=== PATIENT | male | born 1945 | race Caucasian/White ===

== ENCOUNTER 2017-10-10 12:33 | Observation (INO) ==
[2017-10-10] MEDS ORDERED: Sod Chloride 0.9% Inj 1,000 ML IV.SIG ONE (13:01)
[2017-10-10 13:21] LABS: Baso % (Auto) 0.2 % (0.0-2.0); Eos % (Auto) 0.1 % (0.0-4.0); Hematocrit 44.5 % (39.0-51.0); Hemoglobin 15.8 gm/dL (13.0-17.0); Lymph % (Auto) 11.3 % (9.0-44.0); Mean Corpuscular HGB Conc 35.4 % (32.0-36.0); Mean Corpuscular Hemoglobin 34.7 pg (27.0-34.0); Mean Corpuscular Volume 97.9 fL (80.0-100.0); Mean Platelet Volume 7.3 fL (7.0-11.0); Mono # (Auto) 0.3 th/mm3 (0.0-0.9); Mono % (Auto) 3.6 % (0.0-8.0); Neut # (Auto) 7.1 th/mm3 (1.8-7.7); Neut % (Auto) 84.8 % (16.0-70.0); Platelet Count 277 th/mm3 (150-450); Red Blood Count 4.55 mil/mm3 (4.50-5.90); Red Cell Distribution Width 12.8 % (11.6-17.2); White Blood Count 8.4 th/mm3 (4.0-11.0)
[2017-10-10 13:27] LABS: Chloride 103 meq/L (98-107); Potassium 3.5 meq/L (3.5-5.1); Sodium 137 meq/L (136-145)
[2017-10-10 13:30] LABS: Calcium 9.4 mg/dL (8.5-10.1)
[2017-10-10 13:31] LABS: Albumin 3.9 g/dL (3.4-5.0); Anion Gap 10 meq/L (5-15); Blood Urea Nitrogen 12 mg/dL (7-18); Carbon Dioxide 24.1 meq/L (21.0-32.0); Glucose,Random 132 mg/dL (74-106); Lipase 117 U/L (73-393)
[2017-10-10 13:32] LABS: Activated Partial Thrombo Time 23.6 sec (24.3-30.1); INR 1.1 Ratio; Prothrombin Time 10.8 sec (9.8-11.6)
[2017-10-10] MEDS ORDERED: Pantoprazole Inj 40 MG Vial IV.PUSH STA (13:33)
[2017-10-10 13:34] LABS: Alanine Aminotransferase 22 U/L (12-78); Aspartate Aminotransferase 19 U/L (15-37); Glomerular Filtration Rate 82 mL/min (>89)
[2017-10-10 13:36] LABS: Total Protein 7.5 g/dL (6.4-8.2)
[2017-10-10 13:37] LABS: Alkaline Phosphatase 87 U/L (45-117)
[2017-10-10 13:41] LABS: Creatine Kinase 62 U/L (39-308)
--- NOTE | 2017-10-10 14:22 | XR ---
EXAM DATE: 10/10/2017 1:48 PM EDT AGE/SEX: 72 years / Male INDICATIONS: Abdominal pain and vomiting CLINICAL DATA: This is the patient's initial encounter. Patient reports that signs and symptoms have been present for 3 days and indicates a pain score of 4/10. MEDICAL/SURGICAL HISTORY: None. None. COMPARISON: No prior exams available for comparison. FINDINGS: A single erect view of the abdomen demonstrates the lower lungs to be clear.No evidence of free intra peritoneal gas. The visualized bowel loops are unremarkable. The lung bases are grossly clear. CONCLUSION: Unremarkable single upright view of the abdomen. Electronically signed by: Ko Cardenas MD 10/10/2017 2:21 PM EDT
--- NOTE | 2017-10-10 14:37 | ED ---
HPI General Chief complaint: Abdominal Pain Stated complaint: Abd Pain/nausea/ x 2 days Time Seen by Provider: 10/10/17 12:54 History of Present Illness HPI narrative: 72-year-old male here for evaluation of acute onset abdominal pain started yesterday and got worse this morning. Pain is located umbilical area, diffuse, 7 out of 10, comes and goes, nothing makes it better or worse. Patient has nausea but no vomiting, he afraid to eat due to the nausea, last bowel movement was yesterday and it was normal, no black stool, no diarrhea. Patient has been smoking half a pack a day for more than 40 years, denies any chest pain or shortness of breath. Related Data Home Medications Medication Instructions Recorded Confirmed No Known Home Medications 10/04/17 10/10/17 Previous Rx's Medication Instructions Recorded pantoprazole [Protonix] 40 mg PO DAILY #60 tab 10/11/17 Allergies Allergy/AdvReac Type Severity Reaction Status Date / Time No Known Allergies Allergy Verified 10/10/17 12:42 Review of Systems Except as stated in HPI: all other systems reviewed are negative [facility]LY [facility] Family History Family History Other Family history of GERD Social History Social History Substance History: No History of Abuse Second Hand Smoke Exposure: No Smoking Status: Current some day smoker Tobacco Type: Cigarettes How Often Do You Have a Drink Containing Alcohol: 2 to 4 times a month Recent Travel in [facility] within the Last 8 Weeks: No Recent Out of Country Travel within the Last 8 Weeks: No Immunization History Tetanus Immunization: <5 Years Hx Influenza Vaccine This Season: Yes Exam Narrative Exam Narrative: GENERAL: Alert oriented 3 no acute distress SKIN: Focused skin assessment warm/dry. HEAD: Atraumatic. Normocephalic. EYES: Pupils equal and round. No scleral icterus. No injection or drainage. ENT: No nasal bleeding or discharge. Mucous membranes pink and moist. NECK: Trachea midline. No JVD. CARDIOVASCULAR: Regular rate and rhythm. No murmur appreciated. RESPIRATORY: No accessory muscle use. Clear to auscultation. Breath sounds equal bilaterally. GASTROINTESTINAL: Rebound tenderness on palpation of the umbilical area, no skin lesions or bruises, abdomen soft, nondistended. Hepatic and splenic margins not palpable. MUSCULOSKELETAL: No obvious deformities. No clubbing. No cyanosis. No edema. NEUROLOGICAL: Awake and alert. No obvious cranial nerve deficits. Motor grossly within normal limits. Normal speech. PSYCHIATRIC: Appropriate mood and affect; insight and judgment normal. Course Initial Documented Vital Signs Temperature 98.1 F 10/10/17 12:42 Pulse Rate 84 10/10/17 12:42 Respiratory Rate 18 10/10/17 12:42 Blood Pressure 173/101 H 10/10/17 12:42 Pulse Oximetry 98 10/10/17 12:42 Last Documented Vital Signs Temperature 97.6 F 10/11/17 12:00 Pulse Rate 76 10/11/17 12:00 Respiratory Rate 17 10/11/17 12:00 Blood Pressure 108/59 L 10/11/17 12:00 Pulse Oximetry 92 L 10/11/17 12:00 Medical Decision Making Lab Data Result diagrams: 10/10/17 13:10 10/10/17 13:10 Lab Results 10/10/17 10/10/17 10/10/17 Range/Units 13:10 13:10 13:10 CBC w Diff Auto diff final WBC 8.4 (4.0-11.0) th/mm3 RBC 4.55 (4.50-5.90) mil/mm3 Hgb 15.8 (13.0-17.0) gm/dL Hct 44.5 (39.0-51.0) % MCV 97.9 (80.0-100.0) fL MCH 34.7 H (27.0-34.0) pg MCHC 35.4 (32.0-36.0) % RDW 12.8 (11.6-17.2) % Plt Count 277 (150-450) th/mm3 MPV 7.3 (7.0-11.0) fL Neut % (Auto) 84.8 H (16.0-70.0) % Lymph % (Auto) 11.3 (9.0-44.0) % Edmonson % (Auto) 3.6 (0.0-8.0) % Eos % (Auto) 0.1 (0.0-4.0) % Baso % (Auto) 0.2 (0.0-2.0) % Neut # (Auto) 7.1 (1.8-7.7) th/mm3 Lymph # (Auto) 1.0 (1.0-4.8) th/mm3 Edmonson # (Auto) 0.3 (0.0-0.9) th/mm3 Eos # (Auto) 0.0 (0.0-0.4) th/mm3 Baso # (Auto) 0.0 (0.0-0.2) th/mm3 WBC Differential . Differential Comment . PT 10.8 (9.8-11.6) sec INR 1.1 Ratio APTT 23.6 L (24.3-30.1) sec Sodium 137 (136-145) meq/L Potassium 3.5 (3.5-5.1) meq/L Chloride 103 (98-107) meq/L Carbon Dioxide 24.1 (21.0-32.0) meq/L Anion Gap 10 (5-15) meq/L BUN 12 (7-18) mg/dL Creatinine 0.91 (0.60-1.30) mg/dL Estimated GFR 82 L (>89) mL/min Random Glucose 132 H (74-106) mg/dL Lactic Acid (0.4-2.0) mmol/L Calcium 9.4 (8.5-10.1) mg/dL Total Bilirubin 0.6 (0.2-1.0) mg/dL AST 19 (15-37) U/L ALT 22 (12-78) U/L Alkaline Phosphatase 87 (45-117) U/L Total Creatine Kinase 62 (39-308) U/L Troponin I Less than 0.02 L (0.02-0.05) ng/mL Total Protein 7.5 (6.4-8.2) g/dL Albumin 3.9 (3.4-5.0) g/dL Lipase 117 (73-393) U/L Urine Color (Yellw/Straw) Urine Clarity (Clear) Urine pH (5.0-8.5) Ur Specific Dewitt (1.002-1.035) Urine Protein (Neg-Trace) mg/dL Urine Glucose (UA) (Negative) mg/dL Urine Ketones (Negative) mg/dL Urine Occult Blood (Negative) Urine Nitrate (Negative) Urine Bilirubin (Negative) Urine Urobilinogen (Less than 2) mg/dL Ur Leukocyte Esterase (Negative) Urine RBC (0-3) /hpf Urine WBC (0-5) /hpf Ur Squamous Epith Cells (0-5) /hpf Micro UA Comment Urine Culture Comments 10/10/17 10/10/17 10/10/17 Range/Units 13:10 15:15 19:00 CBC w Diff WBC (4.0-11.0) th/mm3 RBC (4.50-5.90) mil/mm3 Hgb (13.0-17.0) gm/dL Hct (39.0-51.0) % MCV (80.0-100.0) fL MCH (27.0-34.0) pg MCHC (32.0-36.0) % RDW (11.6-17.2) % Plt Count (150-450) th/mm3 MPV (7.0-11.0) fL Neut % (Auto) (16.0-70.0) % Lymph % (Auto) (9.0-44.0) % Edmonson % (Auto) (0.0-8.0) % Eos % (Auto) (0.0-4.0) % Baso % (Auto) (0.0-2.0) % Neut # (Auto) (1.8-7.7) th/mm3 Lymph # (Auto) (1.0-4.8) th/mm3 Edmonson # (Auto) (0.0-0.9) th/mm3 Eos # (Auto) (0.0-0.4) th/mm3 Baso # (Auto) (0.0-0.2) th/mm3 WBC Differential Differential Comment PT (9.8-11.6) sec INR Ratio APTT (24.3-30.1) sec Sodium (136-145) meq/L Potassium (3.5-5.1) meq/L Chloride (98-107) meq/L Carbon Dioxide (21.0-32.0) meq/L Anion Gap (5-15) meq/L BUN (7-18) mg/dL Creatinine (0.60-1.30) mg/dL Estimated GFR (>89) mL/min Random Glucose (74-106) mg/dL Lactic Acid 1.7 (0.4-2.0) mmol/L Calcium (8.5-10.1) mg/dL Total Bilirubin (0.2-1.0) mg/dL AST (15-37) U/L ALT (12-78) U/L Alkaline Phosphatase (45-117) U/L Total Creatine Kinase (39-308) U/L Troponin I Less than 0.02 L (0.02-0.05) ng/mL Total Protein (6.4-8.2) g/dL Albumin (3.4-5.0) g/dL Lipase (73-393) U/L Urine Color Yellow (Yellw/Straw) Urine Clarity Clear (Clear) Urine pH 7.5 (5.0-8.5) Ur Specific Dewitt Less/equal 1.005 (1.002-1.035) Urine Protein Negative (Neg-Trace) mg/dL Urine Glucose (UA) Negative (Negative) mg/dL Urine Ketones 40 H (Negative) mg/dL Urine Occult Blood Negative (Negative) Urine Nitrate Negative (Negative) Urine Bilirubin Negative (Negative) Urine Urobilinogen 0.2 (Less than 2) mg/dL Ur Leukocyte Esterase Negative (Negative) Urine RBC 0-3 (0-3) /hpf Urine WBC 0-5 (0-5) /hpf Ur Squamous Epith Cells 0-5 (0-5) /hpf Micro UA Comment Culture not ind Urine Culture Comments Culture not ind Imaging Data Radiologist's impression: Abdomen X-Ray 10/10/17 13:01 CONCLUSION: Unremarkable single upright view of the abdomen. Abdomen/Pelvis CT 10/10/17 13:57 CONCLUSION: 1. Mild aneurysmal dilatation involving the mid to lower abdominal aorta with an AP diameter 3.2 cm. 2. Scattered diverticulosis of the distal descending colon and sigmoid colon without inflammatory changes. 3. Small hiatal hernia the GE junction. Discharge Plan Discharge Disposition Patient Disposition: 30 Still Patient Discharge Condition Condition: Good Discharge Order Discharge Orders: Discharge Order (Routine); Ordered 10/11/17 Ordered By: Bimal Juan Discharge Details Anticipated Discharge Date: 10/11/17 Physicians Team ED Provider: Jesus Logan Primary Care Provider: Primary Care Sarah,Philly Attending Provider: Bimal Juan Other Providers: Makayla Ramirez Discharge Interventions Interventions: ED Discharge Assessment Last Done: 10/10/17 16:00 Status ED Status: Left Department Discharge Information Discharge Date/Time: 10/10/17 16:05
[2017-10-10] MEDS ORDERED: Morphine Sulfate Inj 2 MG/ML Vial IV.PUSH ONE (14:40)
--- NOTE | 2017-10-10 14:40 | CT ---
EXAM DATE: 10/10/2017 2:27 PM EDT AGE/SEX: 72 years / Male INDICATIONS: Lower abdominal pain and nausea x 2 days. CLINICAL DATA: This is the patient's initial encounter. Patient reports that signs and symptoms have been present for 2 days and indicates a pain score of 10/10. MEDICAL/SURGICAL HISTORY: None. None. ORAL CONTRAST: No oral contrast ingested. RADIATION DOSE: 7.96 CTDI (mGy) COMPARISON: No prior exams available for comparison. TECHNIQUE: Multiple contiguous axial images were obtained through the abdomen and pelvis following b olus infusion of 90 ml Omnipaque 350 (iohexol) nonionic water-soluble contrast as a single exam dos e. No oral contrast ingested. Using automated exposure control and adjustment of the mA and/or kV ac cording to patient size, radiation dose was kept as low as reasonably achievable to obtain optimal di agnostic quality images. DICOM format image data is available electronically for review and comparis on. FINDINGS: Lower Lungs: The visualized lower lungs are clear. Small hiatal hernia the GE junction. Liver: The liver has a homogeneous density without space-occupying lesion. There is no dilation of th e biliary tree. Gallbladder grossly unremarkable. Spleen: Homogeneous density without enlargement. Pancreas: Unremarkable without mass or calcification. Kidneys: Normal in size and shape. No evidence of mass or hydronephrosis. Adrenal Glands: Unremarkable. Aorta: There are atherosclerotic changes involving the aorta. There is mild aneurysmal dilatation i nvolving the mid to distal aorta with an AP diameter of 3.2 cm. Bowel/Mesentery: The bowel loops are grossly unremarkable. The cecum and sigmoid colon have a normal configuration. The appendix is unremarkable. There is scattered diverticulosis of the descending and sigmoid colon without inflammatory changes. There is stool in the colon. No free air or free fluid. Small hiatal hernia the GE junction. Abdominal Wall: Intact. Retroperitoneum: No evidence of adenopathy in the retrocrural, para-aortic, or deep pelvic regions. Bladder: Contours are smooth. Reproductive Organs: No abnormal masses or calcifications seen. Inguinal: The inguinal region is unremarkable without evidence of adenopathy. Bony Structures: Mild degenerative changes. CONCLUSION: 1. Mild aneurysmal dilatation involving the mid to lower abdominal aorta with an AP diameter 3.2 cm. 2. Scattered diverticulosis of the distal descending colon and sigmoid colon without inflammatory ch anges. 3. Small hiatal hernia the GE junction. Electronically signed by: Ko Cardenas MD 10/10/2017 2:38 PM EDT
[2017-10-10] MEDS ORDERED: Labetalol HCl Inj 100 MG/20 ML Vial IV.PUSH STA (14:49)
[2017-10-10] MEDS ORDERED: Temazepam 15 MG Capsule PO PRN (15:04)
[2017-10-10] MEDS ORDERED: Acetaminophen 325 MG Tablet PO PRN (15:04)
[2017-10-10] MEDS ORDERED: Morphine Inj 4 MG/ML Vial IV.PUSH PRN (15:10)
--- NOTE | 2017-10-10 15:15 | P.HPIM ---
History of Present Illness Primary Care Physician: No Primary Care Physician Chief Complaint: Abdominal pain History of Present Illness: Patient is a 72-year-old gentleman with minimal past history (he does not see primary doctors) he is come to the hospital with 3 days of severe abdominal pain in the epigastric area. It is intermittent. It is associated with pickups and sensation of reflux. Several days ago he had a knee injury and was prescribed 500 mg of Naprosyn twice daily. He took this for 5 days. After that time he started having abdominal discomfort and began vomiting. There is no hematemesis or black stool. He has not had diarrhea. Patient does smoke his family was at the bedside says that "all of his children have severe heartburn ". Patient did have elevated blood pressure in the emergency room 173 /101. Reports severe pain. His blood pressure has come down with pain medication. He has a CT abdomen pelvis which was done and does show a 3.2 cm lower abdominal aortic aneurysm, scattered diverticula of the descending colon and a small hiatal hernia. Patient at this time is recommended for further evaluation and observation in the hospital for treatment due to severe uncontrolled pain and inability to keep food down - Diagnosis (1) Abdominal pain (2) Accelerated hypertension Review of Systems All other systems reviewed negative except as stated in HPI Constitutional: Reports body ache(s), Reports chills Gastrointestinal: Reports abdominal pain, Reports belching, Reports heartburn, Reports vomiting Musculoskeletal: Reports joint pain (Left knee) [facility] - History History Provided By: Patient - Medical History Medical History: Medical History (Last Reviewed 10/10/17 @ 15:11 by Luz Maria Weaver MD) Patient denies medical problems (Acute) - Surgical History Surgical History: Surgical History (Last Reviewed 10/10/17 @ 15:11 by Luz Maria Weaver MD) No history of previous surgery (Acute) - Family History Family History: Family History (Last Updated 10/10/17 @ 15:12 by Luz Maria Weaver MD) Other Family history of GERD - Tobacco History Tobacco Use In Past 30 Days: Yes Smoking Status: Current every day smoker (50 pack years) Tobacco Type: Cigarettes - Alcohol History How Often Do You Have a Drink Containing Alcohol: Never - Substance Use History Substance History: No History of Abuse - Travel History Recent Travel in the [place] Within the Last 8 Weeks: No Recent Travel Out of the Country Within the Last 8 Weeks: No - Immunization History Tetanus Immunization: <5 Years Hx Influenza Vaccine This Season: Yes Medications and Allergies Active Medications: Active Medications Acetaminophen (Tylenol) 650 mg PO Q4H PRN PRN Reason: Temp > 100.4 Enalaprilat (Vasotec Inj) 1.25 mg IV.PUSH Q8H PRN PRN Reason: SBP>180, DBP>95 Lactated Ringer's (Lr 1000 Ml Inj) 1,000 mls @ 100 mls/hr IV.CONT .Q10H LEONILA Metoclopramide HCl (Reglan Inj) 5 mg IV.PUSH Q6HR PRN; Protocol PRN Reason: NAUSEA OR VOMITING Pantoprazole Sodium (Protonix Inj) 40 mg IV.PUSH Q12H LEONILA Temazepam (Restoril) 15 mg PO HS PRN PRN Reason: INSOMNIA Allergies Allergy/AdvReac Type Severity Reaction Status Date / Time No Known Allergies Allergy Verified 10/10/17 12:42 Home Medications Medication Instructions Recorded Confirmed Type No Known Home Medications 10/04/17 10/10/17 History Exam Vital signs: Vital Signs 10/10/17 12:42 10/10/17 14:40 Temperature 98.1 F Pulse Rate 84 81 Respiratory Rate 18 16 Blood Pressure 173/101 H 153/90 H Pulse Oximetry 98 98 Intake & Output 10/09/17 10/10/17 10/10/17 18:59 06:59 18:59 Weight 70 kg Narrative: GENERAL: Patient calm shaking and with dry mucous membranes, pale SKIN: Warm and dry. No rashes or ecchymotic injuries EYES: Pupils equal and round. No scleral icterus. No injection or drainage. ENT: External ear exam normal. No acute nasal bleeding or discharge. CARDIOVASCULAR: Regular rate and rhythm. No murmurs gallops or rubs appreciated RESPIRATORY: Good air flow and effort without accessory muscle use. Clear to auscultation. Breath sounds equal bilaterally. GASTROINTESTINAL: Abdomen soft, diffusely tender but especially in the epigastrium, nondistended. Hepatic and splenic margins not palpable. MUSCULOSKELETAL: Extremities without clubbing, cyanosis, or edema. No obvious deformities. NEUROLOGICAL: Awake and alert. No obvious cranial nerve deficits. Motor grossly within normal limits. Five out of 5 muscle strength in the arms and legs. Normal speech. Results - Labs CBC & Chem 7: 10/10/17 13:10 10/10/17 13:10 Labs: Short CBC 10/10/17 Range/Units 13:10 WBC 8.4 (4.0-11.0) th/mm3 Hgb 15.8 (13.0-17.0) gm/dL Hct 44.5 (39.0-51.0) % Plt Count 277 (150-450) th/mm3 BMP 10/10/17 13:10 Sodium 137 Potassium 3.5 Chloride 103 Carbon Dioxide 24.1 BUN 12 Creatinine 0.91 Calcium 9.4 Cardiac Enzymes 10/10/17 Range/Units 13:10 Total Creatine Kinase 62 (39-308) U/L Troponin I Less than 0.02 L (0.02-0.05) ng/mL Liver Function 10/10/17 Range/Units 13:10 Total Bilirubin 0.6 (0.2-1.0) mg/dL AST 19 (15-37) U/L ALT 22 (12-78) U/L Alkaline Phosphatase 87 (45-117) U/L Albumin 3.9 (3.4-5.0) g/dL - Imaging Impressions Abdomen X-Ray 10/10/17 13:01 CONCLUSION: Unremarkable single upright view of the abdomen. Abdomen/Pelvis CT 10/10/17 13:57 CONCLUSION: 1. Mild aneurysmal dilatation involving the mid to lower abdominal aorta with an AP diameter 3.2 cm. 2. Scattered diverticulosis of the distal descending colon and sigmoid colon without inflammatory changes. 3. Small hiatal hernia the GE junction. Caprini VTE Risk Assessment Caprini VTE Risk Assessment: Moderate/High Risk (score >= 2) Caprini Risk Assessment Model: Point Value = 1 Point Value = 2 Point Value = 3 Point Value = 5 Age 41-60 Minor surgery BMI > 25 kg/m2 Swollen legs Varicose veins or History of unexplained or recurrent spontaneous Oral contraceptives or hormone replacement Sepsis (< 1 month) Serious lung disease, including pneumonia (< 1 month) Abnormal pulmonary function Acute myocardial infarction Congestive heart failure (< 1 month) History of inflammatory bowel disease Medical patient at bed rest Age 61-74 Arthroscopic surgery Major open surgery (> 45 min) Laparoscopic surgery (> 45 min) Malignancy Confined to bed (> 72 hours) Immobilizing plaster cast Central venous access Age >= 75 History of VTE Family history of VTE Factor V Leiden Prothrombin [id number] Lupus anticoagulant Anticardiolipin antibodies Elevated serum homocysteine Heparin-induced thrombocytopenia Other congenital or acquired thrombophilia Stroke (< 1 month) Elective arthroplasty Hip, pelvis, or leg fracture Acute spinal cord injury (< 1 month) Prophylaxis Regimen: Total Risk Factor Score Risk Level Prophylaxis Regimen 0-1 Low Early ambulation 2 Moderate Order ONE of the following: *Sequential Compression Device (SCD) *Heparin 5000 units SQ BID 3-4 Higher Order ONE of the following medications: *Heparin 5000 units SQ TID *Enoxaparin/Lovenox 40 mg SQ daily (WT < 150 kg, CrCl > 30 mL/min) *Enoxaparin/Lovenox 30 mg SQ daily (WT < 150 kg, CrCl > 10-29 mL/min) *Enoxaparin/Lovenox 30 mg SQ BID (WT < 150 kg, CrCl > 30 mL/min) AND/OR *Sequential Compression Device (SCD) 5 or more Highest Order ONE of the following medications: *Heparin 5000 units SQ TID (Preferred with Epidurals) *Enoxaparin/Lovenox 40 mg SQ daily (WT < 150 kg, CrCl > 30 mL/min) *Enoxaparin/Lovenox 30 mg SQ daily (WT < 150 kg, CrCl > 10-29 mL/min) *Enoxaparin/Lovenox 30 mg SQ BID (WT < 150 kg, CrCl > 30 mL/min) AND *Sequential Compression Device (SCD) Assessment and Plan - Assessment (1) Abdominal pain Code(s): R10.9 - Unspecified abdominal pain Status: Acute Plan: Highly concerning for peptic ulcer disease, continue Protonix twice daily GI consult for endoscopy Morphine for pain (2) Accelerated hypertension Code(s): I10 - Essential (primary) hypertension Status: Acute Plan: Likely accelerated secondary to pain Continue with pain management IV Vasotec - Plan Discharge Planning: pending endoscopy
[2017-10-10 15:47] LABS: Bilirubin,Urine Negative (Negative); Clarity,Urine Clear (Clear); Color,Urine Yellow (Yellw/Straw); Glucose,Urine (UA) Negative (Negative); Leukocyte Esterase,Urine Negative (Negative); Nitrite,Urine Negative (Negative); PH,Urine 7.5 (5.0-8.5); Specific Gravity,Urine Less/Equal 1.005 (1.002-1.035); Urobilinogen,Urine 0.2 mg/dL (Less than 2)
[2017-10-10 15:52] LABS: RBC,Urine 0-3 /hpf (0-3); Squamous Epithelial Cell,Urine 0-5 /hpf (0-5); WBC,Urine 0-5 /hpf (0-5)
[2017-10-10] MEDS: Pantoprazole Inj 40 MG Vial IV.PUSH SCH (16:39)
[2017-10-11] MEDS: Pantoprazole Inj 40 MG Vial IV.PUSH SCH (06:14)
--- NOTE | 2017-10-11 07:58 | GIPROC ---
[facility] [address] [place] [address], [id number] EGD WITH DILATION PROCEDURE REPORT EXAM DATE: 10/11/2017 PATIENT NAME: Lio Dunn MR#: [id number] BIRTHDATE: 1945 ATTENDING: Makayla Ramirez MD ORDER #: [id number] AIR POLLUTION ANALYST: Krysta Newton PARTS SALES ADVISOR and Tuan Hudson PARTS SALES ADVISOR STATUS: inpatient INDICATIONS: The patient is a 72 yr old male here for an EGD with dilation due to abdominal pain, nausea, vomiting PROCEDURE PERFORMED: EGD w/ biopsy MEDICATIONS: None and Per Anesthesia. TOPICAL ANESTHETIC: none CONSENT: The patient understands the risks and benefits of the procedure and understands that these risks include, but are not limited to: sedation, allergic reaction, infection, perforation and/or bleeding. Alternative means of evaluation and treatment include, among others: physical exam, x-rays, and/or surgical intervention. The patient elects to proceed with this endoscopic procedure. medical equipment was checked for proper function. Hand hygiene and appropriate measures for infection prevention was taken. After the risks, benefits and alternatives of the procedure were thoroughly explained, Informed consent was verified, confirmed and timeout was successfully executed by the treatment team. The patient was anesthetized with topical anesthesia and the Motionboxax [id number] endoscope was introduced through the mouth and advanced to the second portion of the duodenum. The instrument was slowly withdrawn as the mucosa was fully examined. Two clean base ulcers in duodenal bulb duodenitis -second portion-biopsy gastritis antrum-biopsy Schatzki's ring. Dilation was performed at gastroesophageal junction. DILATOR: SIZE(S): RESISTANCE: HEME: APPEARANCE: Dilator: Savary over guidewire Size(s): 16 COMMENT: Retroflexed views revealed a hiatal hernia ADVERSE EVENTS: There were no complications. IMPRESSIONS: 1. Two clean base ulcers in duodenal bulb duodenitis -second portion-biopsy gastritis antrum-biopsy Schatzki's ring 2. Retroflexed views revealed a hiatal hernia RECOMMENDATIONS: 1. Await biopsy results. Biopsy results will not be ready for 7-10 days. If you don't hear from us in two weeks, call our office for biopsy results. 2. Anti-reflux regimen 3. Continue PPI 4. Avoid NSAIDS 5. Ok to dc home from gi ppoint gi will sign off fu gi in 2 weeks REPEAT EXAM: Return 8 weeks EGD Makayla Ramirez MD eSigned: Makayla Ramirez MD 10/11/2017 7:58 AM cc: PATIENT NAME: Lio Dunn MR#: [id number]
--- NOTE | 2017-10-11 08:29 | MB ---
cc: Makayla Ramirez MD DATE: 10/11/2017 REQUESTING PHYSICIAN: Dr. Weaver REASON FOR CONSULTATION: Abdominal pain, nausea and vomiting. HISTORY OF PRESENT ILLNESS: Mr. Dunn is a 72-year-old gentleman with no major medical problems who came to the emergency room with complaints of severe abdominal pain in the epigastric area for the last 3 days. The patient does complain of increased reflux, some nausea and vomiting. There is a history of NSAID use. No melena, hematemesis or hematochezia. No weight loss. No constipation or diarrhea. Never had endoscopy and colonoscopy. Had a CT of the abdomen and pelvis which showed a 3.2 cm AAA, diverticulosis and a small hiatal hernia. PAST MEDICAL HISTORY: Hypertension. PAST SURGICAL HISTORY: None. FAMILY HISTORY: No family history of colon cancer or any other GI pathology. SOCIAL HISTORY: Smokes daily 50 pack years. Denies any drug use. No alcohol use. MEDICATIONS: 1. Tylenol. 2. Enalapril. 3. Metoclopramide. 4. Protonix. 5. Restoril. ALLERGIES: NO KNOWN ALLERGIES. REVIEW OF SYSTEMS: He denies any fever, chills, weight loss or weight gain. ENT: No alteration of baseline hearing or visual acuity. PULMONARY: Denies any chest pain or shortness of breath. GASTROINTESTINAL: As above. GENITOURINARY: Denies dysuria or hematuria. HEMATOLOGIC: Denies any history of anemia or bleeding disorder. SKIN: No alteration in baseline skin lesion. NEUROLOGIC: No history of TIA or CVA kind of symptoms. PHYSICAL EXAMINATION: GENERAL: He is sitting, comfortably in bed in no acute distress. VITAL SIGNS: Temperature 98.4, heart rate is 64, respirations 18, blood pressure 115/64, saturation 96. HEENT: PERRLA. NECK: No JVD. No lymphadenopathy. CHEST: Clear to auscultation on palpation. CARDIOVASCULAR: S1, S2. No murmur. ABDOMEN: Soft, nontender. Bowel sounds are present. CENTRAL NERVOUS SYSTEM: Awake, alert, oriented x 3. No focal signs identified. He has a brace on the right leg and knee. LABORATORY DATA: His white count is 8.4, hemoglobin 15.8, platelets 277. PT, INR normal. His chemistry is essentially normal except glucose 132. The patient had a CT abdomen and pelvis as above. He did have an abdominal x-ray which was essentially negative. IMPRESSION: Mr. Dunn is a pleasant 72-year-old gentleman admitted to the hospital with nausea, vomiting, abdominal pain, history of nonsteroid anti-inflammatory drug use concern of possible peptic ulcer disease, abdominal aortic aneurysm, no dissection. RECOMMENDATIONS: 1. Upper endoscopy will be scheduled. The risks and benefits were discussed with the patient and he is agreeing with it. 2. Continue PPIs. 3. Monitor H and H. 4. Avoid alcohol and AST. I would like to thank Dr. Waever for referring him to our office for consultation. Colonoscopy as an outpatient for screening purposes. Thank you again. We will continue to follow the patient along with you. Makayla Ramirez MD BSB/DL , 08:04 AM , 08:27 AM
[2017-10-11] MEDS ORDERED: Glycopyrrolate Inj 1 MG/5 ML Syringe IV.PUSH ONE (12:00)
[2017-10-11] MEDS ORDERED: Succinylcholine Inj 100 MG/5 ML Syringe IV.PUSH ONE (12:00)
--- NOTE | 2017-10-11 13:23 | P.DS ---
Date of admission: 10/10/17 14:50 Primary care physician: No Primary Care Physician Brief History from admission: Patient is a 72-year-old gentleman with minimal past history (he does not see primary doctors) he is come to the hospital with 3 days of severe abdominal pain in the epigastric area. It is intermittent. It is associated with pickups and sensation of reflux. Several days ago he had a knee injury and was prescribed 500 mg of Naprosyn twice daily. He took this for 5 days. After that time he started having abdominal discomfort and began vomiting. There is no hematemesis or black stool. He has not had diarrhea. Patient does smoke his family was at the bedside says that "all of his children have severe heartburn ". Patient did have elevated blood pressure in the emergency room 173 /101. Reports severe pain. His blood pressure has come down with pain medication. He has a CT abdomen pelvis which was done and does show a 3.2 cm lower abdominal aortic aneurysm, scattered diverticula of the descending colon and a small hiatal hernia. Patient at this time is recommended for further evaluation and observation in the hospital for treatment due to severe uncontrolled pain and inability to keep food down DS: Medications - Discharge Medications Prescriptions: pantoprazole [Protonix] 40 mg PO DAILY #60 tab DS: Summary Hospital Course: 72-year-old male with a fairly absent medical history due to not seen a doctor in 30 years. He presented 2 days ago with epigastric and abdominal pain. EGD performed earlier this morning reveals 2 peptic ulcers. Neither peptic ulcer was bleeding. Hemoglobin on admission was stable. Biopsies were taken during the EGD and he has a follow-up arranged with Dr. Ramirez to discuss results in 1 month. He has provided a prescription for Protonix 40 mg p.o. daily for 2 months and will be following up with gastroenterology for further management. He is stable for discharge. - Time Spent with Patient Total time spent providing and/or coordinating discharge services: - Quality: VTE Deep Vein Thrombosis/Pulmonary Embolism Present on Admission: No Exam Vital signs: Vital Signs 10/10/17 14:40 10/10/17 15:24 10/10/17 16:00 Temperature 97.8 F Pulse Rate 81 85 82 Respiratory Rate 16 16 18 Blood Pressure 153/90 H 153/73 H 122/71 Pulse Oximetry 98 98 96 10/10/17 20:00 10/11/17 00:00 10/11/17 04:00 Temperature 96.3 F L 97.2 F L 97.6 F Pulse Rate 79 73 63 Respiratory Rate 18 18 18 Blood Pressure 115/66 97/54 L 117/60 Pulse Oximetry 94 L 92 L 92 L 10/11/17 06:50 10/11/17 08:03 10/11/17 08:15 Temperature 98.4 F 97.7 F Pulse Rate 64 69 70 Respiratory Rate 18 16 16 Blood Pressure 115/64 113/63 114/63 Pulse Oximetry 92 L 91 L 94 L 10/11/17 12:00 Temperature 97.6 F Pulse Rate 76 Respiratory Rate 17 Blood Pressure 108/59 L Pulse Oximetry 92 L Intake & Output 10/10/17 10/11/17 10/11/17 18:59 06:59 18:59 Intake Total 1000 / 1000 1000 / 1000 700 / 700 Output Total 400 / 400 600 / 600 Balance 600 / 600 400 / 400 700 / 700 Weight 70 kg 70 kg Intake: IV 1000 / 1000 1000 / 1000 LR 1000 mL Inj 1,000 ML @ 100 1000 / 1000 mls/hr IV.CONT .Q10H LEONILA Rx#: [id number] NS Inj 1,000 ML @ Wide Open IV. 1000 / 1000 SIG BOLUS ONE Rx#:[id number] Oral 0 / 0 0 / 0 Anesthesia Amount 700 / 700 Other 0 / 0 Output: Urine 400 / 400 600 / 600 Other: # Voids 0 Date of Last Bowel Movement 10/10/17 10/10/17 # Bowel Movements 0 Narrative: GENERAL: This, AAOx3 SKIN: Warm and dry. HEAD: Atraumatic. Normocephalic. EYES: Pupils equal and round. No scleral icterus. No injection or drainage. ENT: No nasal bleeding or discharge. Mucous membranes pink and moist. NECK: Trachea midline. No JVD. CARDIOVASCULAR: Regular rate and rhythm. RESPIRATORY: No accessory muscle use. Clear to auscultation. Breath sounds equal bilaterally. GASTROINTESTINAL: Abdomen soft, non-tender, nondistended. Hepatic and splenic margins not palpable. MUSCULOSKELETAL: Extremities without clubbing, cyanosis, or edema. No obvious deformities. NEUROLOGICAL: Awake and alert. No obvious cranial nerve deficits. Motor grossly within normal limits. Five out of 5 muscle strength in the arms and legs. Normal speech. PSYCHIATRIC: Appropriate mood and affect; insight and judgment normal. Results Procedures completed during hospitalization: EGD on 10/11/17 Labs on day of discharge: Labs from last 24 hours 10/10/17 10/10/17 10/10/17 19:00 15:15 13:10 CBC w Diff WBC RBC Hgb Hct MCV MCH MCHC RDW Plt Count MPV Neut % (Auto) Lymph % (Auto) [place] % (Auto) Eos % (Auto) Baso % (Auto) Neut # (Auto) Lymph # (Auto) [place] # (Auto) Eos # (Auto) Baso # (Auto) WBC Differential Differential Comment PT INR APTT Sodium Potassium Chloride Carbon Dioxide Anion Gap BUN Creatinine Estimated GFR Random Glucose Lactic Acid 1.7 Calcium Total Bilirubin AST ALT Alkaline Phosphatase Total Creatine Kinase Troponin I Less than 0.02 L Total Protein Albumin Lipase Urine Color Yellow Urine Clarity Clear Urine pH 7.5 Ur Specific [place] Less/equal 1.005 Urine Protein Negative Urine Glucose (UA) Negative Urine Ketones 40 H Urine Occult Blood Negative Urine Nitrate Negative Urine Bilirubin Negative Urine Urobilinogen 0.2 Ur Leukocyte Esterase Negative Urine RBC 0-3 Urine WBC 0-5 Ur Squamous Epith Cells 0-5 Micro UA Comment Culture not ind Urine Culture Comments Culture not ind 10/10/17 10/10/17 10/10/17 13:10 13:10 13:10 CBC w Diff Auto diff final WBC 8.4 RBC 4.55 Hgb 15.8 Hct 44.5 MCV 97.9 MCH 34.7 H MCHC 35.4 RDW 12.8 Plt Count 277 MPV 7.3 Neut % (Auto) 84.8 H Lymph % (Auto) 11.3 [place] % (Auto) 3.6 Eos % (Auto) 0.1 Baso % (Auto) 0.2 Neut # (Auto) 7.1 Lymph # (Auto) 1.0 [place] # (Auto) 0.3 Eos # (Auto) 0.0 Baso # (Auto) 0.0 WBC Differential . Differential Comment . PT 10.8 INR 1.1 APTT 23.6 L Sodium 137 Potassium 3.5 Chloride 103 Carbon Dioxide 24.1 Anion Gap 10 BUN 12 Creatinine 0.91 Estimated GFR 82 L Random Glucose 132 H Lactic Acid Calcium 9.4 Total Bilirubin 0.6 AST 19 ALT 22 Alkaline Phosphatase 87 Total Creatine Kinase 62 Troponin I Less than 0.02 L Total Protein 7.5 Albumin 3.9 Lipase 117 Urine Color Urine Clarity Urine pH Ur Specific [place] Urine Protein Urine Glucose (UA) Urine Ketones Urine Occult Blood Urine Nitrate Urine Bilirubin Urine Urobilinogen Ur Leukocyte Esterase Urine RBC Urine WBC Ur Squamous Epith Cells Micro UA Comment Urine Culture Comments - Impressions ITS Impressions Abdomen X-Ray 10/10/17 13:01 CONCLUSION: Unremarkable single upright view of the abdomen. Abdomen/Pelvis CT 10/10/17 13:57 CONCLUSION: 1. Mild aneurysmal dilatation involving the mid to lower abdominal aorta with an AP diameter 3.2 cm. 2. Scattered diverticulosis of the distal descending colon and sigmoid colon without inflammatory changes. 3. Small hiatal hernia the GE junction. Discharge Plan - Discharge Disposition Patient Disposition: Discharge Home - Discharge Condition Condition: Good - Discharge Order Discharge Orders: Discharge Order (Routine); Ordered 10/11/17 Ordered By: Bimal Juan - Discharge Details Anticipated Discharge Date: 10/11/17 - Physicians Team Primary Care Provider: Primary Care Sarah,[place] Attending Provider: Bimal Juan Other Providers: Makayla Ramirez MD
--- NOTE | 2017-10-11 18:40 | ECG ---
Date Performed: 10/10/2017 Time Performed: 15:17:52 PTAGE: 72 years EKG: Sinus rhythm NORMAL ECG NO PREVIOUS TRACING DOCTOR: Ryan Ortiz Interpretating Date/Time 10/11/2017 18:38:57
--- NOTE | 2017-10-11 19:16 | ECG ---
Date Performed: 10/11/2017 Time Performed: 03:34:56 PTAGE: 72 years EKG: Sinus rhythm NORMAL ECG PREVIOUS TRACING : 10/10/2017 15.17 Since the previous tracing, no significant change noted DOCTOR: Ryan Ortiz Interpretating Date/Time 10/11/2017 19:15:38
== END 2017-10-11 12:54 | disposition home or self-care (01) ==
LOC: PHEDA 12:33 → PH3 12:33 → PHED 12:33 → PHEDA 16:05 → PH3 16:10
PROVIDERS: ADMIT Family Medicine; ATTEND Family Medicine